=== PATIENT | female | born 2000 | race Two or more races ===

== ENCOUNTER 2022-05-13 20:25 | Emergency (ER) | payer SELFPAY ==
[~2022-05-13] VITALS: Ht 157.5 cm; Wt 62.6 kg
[2022-05-13 20:33] VITALS: BP 125/62
--- NOTE | 2022-05-13 21:06 | NUR ---
Dr. Grimm examining patient.
--- NOTE | 2022-05-13 21:20 | NUR ---
Patient taken to US via WC.
--- NOTE | 2022-05-13 21:30 | NUR ---
PT IS [employer]ZE[employer] SPEAKER. PT IS HERE BECAUSE HERE VAGINAL BLEEDING AND PAIN 4/10. PT IS ALERT AND ORIENTED X4.
[2022-05-13 21:58] LABS: BASOPHILS % (AUTO) 0.4 % (0.0-2.0); EOSINOPHILS # (AUTO) 0.3 K/uL (0-0.4); EOSINOPHILS % (AUTO) 2.4 % (0.0-4.0); HEMATOCRIT 37.8 % (36-48); HEMOGLOBIN 12.5 g/dL (12.0-16.0); LYMPHOCYTES # (AUTO) 3.1 K/uL (2.5-16.5); LYMPHOCYTES % (AUTO) 25.5 % (20.5-51.1); MEAN CORPUSCULAR HEMOGLOBIN 29 pg (27-31); MEAN CORPUSCULAR HGB CONC 33 g/dL (33-37); MEAN CORPUSCULAR VOLUME 87.5 fL (80-94); MONOCYTES # (AUTO) 0.8 K/uL (0.8-1.0); MONOCYTES % (AUTO) 6.8 % (1.7-9.3); NEUTROPHILS # (AUTO) 7.8 K/uL (1.8-7.7); NEUTROPHILS % (AUTO) 64.9 % (42.2-75.2); PLATELET COUNT (AUTO) 319 K/uL (140-450); RED BLOOD CELL COUNT(AUTO) 4.32 MIL/uL (4.20-5.40)
[2022-05-13 22:16] LABS: ANION GAP 11.4 (8-16); CARBON DIOXIDE 26.3 mmol/L (21-32); CREATININE 0.6 mg/dL (0.6-1.3); POTASSIUM 3.7 mmol/L (3.5-5.1); TOTAL BILIRUBIN 0.2 mg/dL (0.0-1.0)
[2022-05-13 23:49] LABS: APPEARANCE,URINE CLEAR (CLEAR); BILIRUBIN,URINE NEGATIVE (NEGATIVE); BLOOD, URINE TRACE-I (NEGATIVE); COLOR,URINE YELLOW (YELLOW); LEUKOCYTE ESTERASE ,URINE NEGATIVE (NEGATIVE); NITRITE, URINE NEGATIVE (NEGATIVE); UGLUCOSE NEGATIVE (NEGATIVE)
[2022-05-13 23:52] LABS: RBC,URINE 0-5 /HPF (0-5); WBC,URINE 0-5 /HPF (0-5)
[2022-05-13] MEDS ORDERED: ACET-10509 PO (23:54)
[2022-05-13] MEDS ORDERED: CEPH-588 PO (23:54)
[2022-05-14 00:41] VITALS: BP 125/62
--- NOTE | 2022-05-14 00:43 | NUR ---
Patient discharged with v/s stable. Written and verbal after care instructions given and explained. Patient verbalized understanding. Ambulatory with steady gait. All questions addressed prior to discharge. Advised to follow up with PMD. PT LEFT WITH HER BELONGINGS
== END 2022-05-14 00:43 | disposition home or self-care (01) ==
LOC: MED 20:25 → EDSEX 20:25 → MED 05-14 00:43
DX: O46.91 Antepartum hemorrhage, unspecified, first trimester (principal); Z3A.01 Less than 8 weeks gestation of pregnancy
CPT/HCPCS: 36415; 76801; 80053; 81001; 81025; 84702; 85025; 86900; 86901; 87086; 99284

== ENCOUNTER 2022-06-06 02:35 | Emergency (ER) | payer SELFPAY ==
[~2022-06-06] VITALS: Ht 157.5 cm; Wt 61.2 kg
[~2022-06-06 02:35] MED LIST: ACET-10509 PO; CEPH-588 PO
[2022-06-06 02:40] VITALS: BP 126/85
--- NOTE | 2022-06-06 02:40 | NUR ---
TO BED AMBULATORY
--- NOTE | 2022-06-06 02:59 | NUR ---
URINE TAKEN BY LAB.
[2022-06-06 03:04] LABS: APPEARANCE,URINE CLEAR (CLEAR); BILIRUBIN,URINE 1+ (NEGATIVE); BLOOD, URINE 1+ (NEGATIVE); COLOR,URINE YELLOW (YELLOW); LEUKOCYTE ESTERASE ,URINE NEGATIVE (NEGATIVE); NITRITE, URINE NEGATIVE (NEGATIVE); UGLUCOSE NEGATIVE (NEGATIVE)
[2022-06-06 03:11] LABS: RBC,URINE 0-5 /HPF (0-5)
[2022-06-06 03:56] LABS: BASOPHILS % (AUTO) 0.2 % (0.0-2.0); EOSINOPHILS # (AUTO) 0.2 K/uL (0-0.4); HEMATOCRIT 36.4 % (36-48); HEMOGLOBIN 12.4 g/dL (12.0-16.0); LYMPHOCYTES # (AUTO) 1.7 K/uL (2.5-16.5); LYMPHOCYTES % (AUTO) 20.9 % (20.5-51.1); MEAN CORPUSCULAR HEMOGLOBIN 29 pg (27-31); MEAN CORPUSCULAR HGB CONC 34 g/dL (33-37); MEAN CORPUSCULAR VOLUME 86.3 fL (80-94); MONOCYTES # (AUTO) 0.5 K/uL (0.8-1.0); MONOCYTES % (AUTO) 5.8 % (1.7-9.3); NEUTROPHILS # (AUTO) 5.9 K/uL (1.8-7.7); NEUTROPHILS % (AUTO) 71.1 % (42.2-75.2); PLATELET COUNT (AUTO) 271 K/uL (140-450); RED BLOOD CELL COUNT(AUTO) 4.22 MIL/uL (4.20-5.40); RED CELL DISTRIBUTION WIDTH 13.1 % (11.6-13.7); WHITE BLOOD COUNT (AUTO) 8.4 K/uL (4.5-11.0)
[2022-06-06] MEDS ORDERED: CEPH-588 PO (05:45)
[2022-06-06 08:14] VITALS: BP 118/85
== END 2022-06-06 08:15 | disposition home or self-care (01) ==
LOC: MED 02:35
DX: O20.0 Threatened abortion (principal); O23.91 Unspecified genitourinary tract infection in pregnancy, first trimester; R82.71 Bacteriuria; Z3A.09 9 weeks gestation of pregnancy; Z79.2 Long term (current) use of antibiotics; Z79.899 Other long term (current) drug therapy
CPT/HCPCS: 36415; 76815; 81001; 81025; 84702; 85025; 87086; 99284; Q0092

== ENCOUNTER 2022-08-22 11:30 | Observation (INO) | payer MEDICAID ==
[~2022-08-22] VITALS: Ht 157.5 cm; Wt 59.9 kg
[2022-08-22 12:10] VITALS: BP 114/67
--- NOTE | 2022-08-22 12:36 | NUR ---
PATIENT HAS BEEN SCREENED AND CATEGORIZED LOW NUTRITION RISK. PATIENT WILL BE SEEN WITHIN 7 DAYS OF ADMISSION. 08/29/[address]
== END 2022-08-22 12:35 | disposition home or self-care (01) ==
LOC: MLD 11:30
PROVIDERS: ADMIT Obstetrics & Gynecology; ATTEND Obstetrics & Gynecology
DX: O26.892 Other specified pregnancy related conditions, second trimester (principal); R10.30 Lower abdominal pain, unspecified; O99.891 Other specified diseases and conditions complicating pregnancy; M25.552 Pain in left hip; M25.551 Pain in right hip; Z3A.22 22 weeks gestation of pregnancy
CPT/HCPCS: 59025; 81000; G0378